=== PATIENT | female | born 1995 | race Caucasian/White ===

== ENCOUNTER → 2023-10-04 12:48 | Outpatient (REF) | payer OTHER, SELFPAY | LOC: HWRAD 12:48 | PROVIDERS: ATTENDING PHYSICIAN Internal Medicine | DX: R74.8 Abnormal levels of other serum enzymes (principal) | CPT/HCPCS: 76700 ==

== ENCOUNTER → 2025-01-21 08:44 | Outpatient (REF) | payer OTHER, SELFPAY | LOC: PNTC 08:44 | PROVIDERS: ATTENDING PHYSICIAN Obstetrics & Gynecology | DX: Z36.0 Encounter for antenatal screening for chromosomal anomalies (principal); Z36.82 Encounter for antenatal screening for nuchal translucency; O30.031 Twin pregnancy, monochorionic/diamniotic, first trimester; O09.811 Supervision of pregnancy resulting from assisted reproductive technology, first trimester; O99.281 Endocrine, nutritional and metabolic diseases complicating pregnancy, first trimester; O09.91 Supervision of high risk pregnancy, unspecified, first trimester | CPT/HCPCS: 76801; 76802; 76813; 76814 ==

== ENCOUNTER → 2025-02-18 09:23 | Outpatient (REF) | payer OTHER, SELFPAY | LOC: PNTC 09:23 | PROVIDERS: ATTENDING PHYSICIAN Obstetrics & Gynecology | DX: O30.032 Twin pregnancy, monochorionic/diamniotic, second trimester (principal); O99.212 Obesity complicating pregnancy, second trimester; O09.812 Supervision of pregnancy resulting from assisted reproductive technology, second trimester; O99.282 Endocrine, nutritional and metabolic diseases complicating pregnancy, second trimester; O09.92 Supervision of high risk pregnancy, unspecified, second trimester | CPT/HCPCS: 76805; 76810 ==

== ENCOUNTER → 2025-03-03 06:53 | Outpatient (REF) | payer OTHER, SELFPAY | LOC: PNTC 06:53 | PROVIDERS: ATTENDING PHYSICIAN Obstetrics & Gynecology | DX: O30.032 Twin pregnancy, monochorionic/diamniotic, second trimester (principal); O99.212 Obesity complicating pregnancy, second trimester; O09.812 Supervision of pregnancy resulting from assisted reproductive technology, second trimester; O99.282 Endocrine, nutritional and metabolic diseases complicating pregnancy, second trimester; O09.92 Supervision of high risk pregnancy, unspecified, second trimester | CPT/HCPCS: 76815; 76820; 76821 ==